=== PATIENT | male | born 1990 | race Caucasian/White ===

== ENCOUNTER 2022-02-15 22:36 | Emergency (ER) ==
[2022-02-16] MEDS ORDERED: Lidocaine 1% with EPINEPHrine 1:100,000 10 ML MDV INJECT ONE (00:02)
== END 2022-02-16 00:05 | disposition home or self-care (01) ==
LOC: MW.ED 22:36
DX: S06.0X9A Concussion with loss of consciousness of unspecified duration, initial encounter (principal); S01.81XA Laceration without foreign body of other part of head, initial encounter; W22.8XXA Striking against or struck by other objects, initial encounter
CPT/HCPCS: 12011; 70450; 70450-26; 99284